=== PATIENT | female | born 1995 | race Two or more races ===

== ENCOUNTER 2018-04-02 23:42 | Emergency (ER) | payer OTHER ==
[2018-04-02] MEDS ORDERED: DIPHENHYDRAMINE HCL 50 MG/ML VIAL IV ONE (23:50)
[2018-04-02] MEDS ORDERED: METHYLPREDNISOLONE INJ 125 MG/2 ML SDV IV ONE (23:51)
[2018-04-02] MEDS ORDERED: EPINEPHRINE INJ/PF 1 MG/1 ML AMPULE IM ONE (23:51)
--- NOTE | 2018-04-03 | ER Document Report ---
ED General - General Chief Complaint: Allergic Reaction Stated Complaint: POSS ALLERGIC REACTION Time Seen by Provider: 04/02/18 23:46 Notes: Patient is a 23-year-old female presents with complaint of allergic reaction. Patient says that she took recent necks. Shortly after taking it she developed a rash and a little bit of itching. She did have some swelling around the mouth. She does not have any swelling or tongue or throat. No difficulty breathing or swallowing. She says it was Mucinex p.m. however she has had Benadryl several times in the past without any reaction. No other complaints at this time. TRAVEL OUTSIDE OF THE [place] IN LAST 30 DAYS: No - Related Data Allergies/Adverse Reactions: acetaminophen [From Mucinex Fast-MaxSev Cold-Sinus] Allergy (Severe, Verified 00:12) dextromethorphan [From Mucinex Fast-MaxSev Cold-Sinus] Allergy (Severe, Verified 04/03/18 00:12) phenylephrine [From Mucinex Fast-MaxSev Cold-Sinus] Allergy (Severe, Verified 00:12) Past Medical History - Social History Smoking Status: Never Smoker Frequency of alcohol use: None Drug Abuse: None Family History: Reviewed & Not Pertinent Review of Systems - Review of Systems Notes: My Normal Review Basic REVIEW OF SYSTEMS: CONSTITUTIONAL : Denies fever, chills, or sweats. EENT: Some recent nasal congestion. CARDIOVASCULAR: Denies chest pain. RESPIRATORY: Denies cough, cold, or chest congestion. Denies shortness of breath, difficulty breathing, or wheezing. GASTROINTESTINAL: Denies abdominal pain. Denies nausea, vomiting, or diarrhea. MUSCULOSKELETAL: Denies neck or back pain or joint pain or swelling. SKIN: Redness over face upper chest and upper back. NEUROLOGICAL: Denies altered mental status or loss of consciousness. Denies headache. Denies weakness or paralysis or loss of use of either side. Denies problems with gait or speech. Denies sensory or motor loss. ALL OTHER SYSTEMS REVIEWED AND NEGATIVE. Physical Exam - Vital signs Vitals: Resp Pulse Ox 16 100 04/02/18 23:50 04/02/18 23:50 - Notes Notes: General Appearance: Well nourished, alert, cooperative, no acute distress, no obvious discomfort. Vitals: reviewed, See vital signs table. Head: Swelling around the mouth and lips. No swelling of the tongue or pharynx. Eyes: PERRL, EOMI, Conjuctiva clear Mouth: No decreasd moisture Throat: No tonsillar inflammation, No airway obstruction, No lymphadenopathy Neck: Supple, no neck tenderness, No thyromegaly Lungs: No wheezing, No rales, No rhonci, No accessory muscle use, good air exchange bilaterally. Heart: Slightly tachycardic rate, Regular rythm, No murmur, no rub Abdomen: Normal BS, soft, No rigidity, No abdominal tenderness, No guarding, no rebound, no abdominal masses, no organomegaly Extremities: strength 5/5 in all extremities, good pulses in all extremities, no swelling or tenderness in the extremities, no edema. Skin: Patient has redness around the face as well as redness over the upper chest and down the neck and into this is some of the upper extremity. All rashes blanchable. Slightly pruritic. Nonpainful. Neuro: speech clear, oriented x 3, normal affect, responds appropriately to questions. Course - Re-evaluation Re-evalutation: 04/03/18 00:45 On reevaluation patient looks well. Swelling around the face and lips has gone away after the epi. Rash is gone away. She is sitting comfortable without any distress or difficulty breathing. We will continue monitor patient for a little bit longer to make sure she does not have a rebound reaction when the epinephrine wears off. 04/03/18 02:09 Reevaluation patient continues say that she feels improved however her rash is returning and she started to itch again. She does not have any swelling to the face or lips. I will give her an oral dose of Benadryl as well as some Pepcid IV. I will watch her a little bit longer to make sure she does not progress to having swelling again. 04/03/18 03:03 On reevaluation patient is feeling much improved. She is actually just now getting the Benadryl and Pepcid and her rash is actually is resolved again on its own. She has no facial swelling. No difficulty breathing or swallowing. I feel she safe to be discharged home. I encouraged her return to ER immediately if she has used EpiPen, if she has any lip swelling or tongue swelling, she has rash and itching that is not improved with Benadryl. Patient to avoid using the Mucinex. Patient agrees with plan and will be discharged home. Dictation of this chart was performed using voice recognition software; therefore, there may be some unintended grammatical errors. - Vital Signs Vital signs: Temp Pulse Resp BP Pulse Ox 97.9 F 16 101/72 98 04/03/18 02:01 04/03/18 02:01 04/03/18 02:00 04/03/18 02:01 Discharge - Discharge Clinical Impression: Allergic reaction Qualifiers: Encounter type: initial encounter Qualified Code(s): T78.40XA - Allergy, unspecified, initial encounter Condition: Good Disposition: HOME, SELF-CARE Additional Instructions: Please return to the ER immediately if you have to use the Epi pen, have facial swelling, tongue swelling, throat swelling, difficulty breathing, or feel that your reaction is becoming severe. Please use the Epi pen if you have any facial swelling, tongue swelling, or difficulty breathing. Prescriptions: Epinephrine [Epipen 2-Ronal] 0.3 mg IM ASDIR PRN #1 packet PRN Reason: Prednisone [Deltasone 10 mg Tablet] 10 mg PO ASDIR PRN #20 tablet PRN Reason: Forms: Return to Work
[2018-04-03] MEDS ORDERED: DIPHENHYDRAMINE HCL 25 MG CAPSULE PO ONE (02:09)
[2018-04-03] MEDS ORDERED: FAMOTIDINE INJ/PF 20 MG/2 ML SDV IV ONE (02:09)
[2018-04-03 03:36] VITALS: BP 116/80
== END 2018-04-03 03:37 | disposition home or self-care (01) ==
LOC: ER 23:42
DX: T78.40XA Allergy, unspecified, initial encounter (principal); R21 Rash and other nonspecific skin eruption; X58.XXXA Exposure to other specified factors, initial encounter; Z88.6 Allergy status to analgesic agent
CPT/HCPCS: 99283; 96372; 96374; 96375; J1200; J0171; J2930; S0028